=== PATIENT | male | born 1975 | race Caucasian/White ===

== ENCOUNTER → 2017-04-13 | Outpatient (CLI) | payer BC ==
[~2017-04-13] MED LIST: ALBU18002 INH; ATV/1 PO; DEXT1CAP PO; ESCI1TAB10 PO; FLX10 PO; LRT5 PO; METH4PAK4 PO; OXYC-57 PO
--- NOTE | 2017-04-13 12:33 | DIAGNOSTIC IMAGING REPORT ---
CHEST 2 VIEWS ROUTINE CLINICAL HISTORY: SOB dyspnea COMPARISON STUDY: No previous studies for comparison. FINDINGS: The bones soft tissues and hemidiaphragms are normal. The cardiomediastinal silhouette is normal. The lungs are clear. The pulmonary vasculature is normal. IMPRESSION: Negative chest. The above report was generated using voice recognition software. It may contain grammatical, syntax or spelling errors. Electronically signed by: Lucio Reynolds M.D. 04/13/2017 12:32 PM Dictated Date/Time: 04/13/2017 12:32 PM
== END | disposition home or self-care (01) ==
LOC: C.RAD1850 12:01
PROVIDERS: ATTEND Family Medicine
DX: R06.02 Shortness of breath (principal)

== ENCOUNTER 2017-04-17 14:41 | Emergency (ER) | payer BC ==
[~2017-04-17] VITALS: Ht 185.4 cm; Wt 125.0 kg
[~2017-04-17 14:41] MED LIST changes: -ALBU18002 INH; -ATV/1 PO; -DEXT1CAP PO; -ESCI1TAB10 PO
[2017-04-17 14:49] VITALS: TEMP 36.9; Ht 185.4 cm; Wt 125.0 kg
[2017-04-17 15:03] VITALS: O2SAT 100
[2017-04-17 15:06] LABS: BASO % 0.6 %; BASO ABS # 0.04 K/uL (0-0.2); COMPLETE YES; EOS % 1.8 %; HEMATOCRIT 42.1 % (42-52); IG% 0.3 %; LYMPH % 28.2 %; LYMPH ABS # 1.87 K/uL (1.2-3.4); MEAN CORPUSCULAR HEMOGLOBIN 31.2 pg (25-34); MEAN CORPUSCULAR HGB CONC 35.9 g/dl (32-36); MEAN PLATELET VOLUME 10.9 fL (7.4-10.4); MONO % 5.9 %; NEUT % 63.2 %; PLATELET COUNT 221 K/uL (130-400); RED BLOOD COUNT 4.84 M/uL (4.7-6.1); WHITE BLOOD COUNT 6.62 K/uL (4.8-10.8)
--- NOTE | 2017-04-17 15:22 | DIAGNOSTIC IMAGING REPORT ---
CHEST ONE VIEW PORTABLE CLINICAL HISTORY: 41 years-old Male presenting with CHEST PAIN. TECHNIQUE: Portable upright AP view of the chest was obtained. COMPARISON: 04/13/2017. FINDINGS: Cardiomediastinal silhouette normal. Apparent nipple shadow over the right lung base more prominent on the current exam. Lungs and pleural spaces clear. Osseous structures normal. Upper abdomen normal. IMPRESSION: 1. No acute cardiopulmonary disease. Electronically signed by: Mykel Cueva M.D. 04/17/2017 3:21 PM Dictated Date/Time: 04/17/2017 3:20 PM
[2017-04-17 15:23] LABS: BUN/CREATININE RATIO 13.3 (10-20); CALCIUM 9.2 mg/dl (8.5-10.1); CREATININE 1.2 mg/dl (0.60-1.40); POTASSIUM 3.8 mmol/L (3.5-5.1)
[2017-04-17 15:32] LABS: POINT OF CARE TROPONIN I < 0.030 ng/ml (0-0.045)
[2017-04-17] MEDS ORDERED: DEXT1CAP PO (15:45)
[2017-04-17] MEDS ORDERED: ALBU18002 INH (15:45)
[2017-04-17] MEDS ORDERED: ESCI1TAB10 PO (15:45)
[2017-04-17] MEDS ORDERED: LORAZEPAM 1 MG TAB SL STA (17:11)
[2017-04-17 17:13] VITALS: BP 127/77; PULSE 79; O2SAT 99
[2017-04-17] MEDS ORDERED: ATV/1 PO (17:14)
--- NOTE | 2017-04-17 20:49 | EMERGENCY ROOM VISIT NOTE ---
History Report prepared by Jean Marie: Bryson Jarrett Under the Supervision of: Dr. Moise Stewart M.D. First contact with patient: 14:47 Chief Complaint: SHORTNESS OF BREATH Stated Complaint: SHORTNESS OF BREATH History of Present Illness The patient is a 41 year old male who presents to the Emergency Room with complaints of intermittent shortness of breath beginning five days ago. He also complains of intermittent arm tingling. The tingling is not abnormal for him. The patient was seen by his PCP five days ago and had an ECG and blood work which were all normal. He followed up with his PCP this morning. Exertion does not worsen his symptoms. The patient notes that he is in the process of weaning off of Lexapro due to recommendation by his PCP. He states that he has felt anxious recently, but does not know why. Pt denies LOC, headache, fevers, chills , diaphoresis, visual changes, neck pain, chest pain, nausea, vomiting, abdominal pain, back pain, melena, hematochezia, urinary symptoms, numbness, weakness, lymphadenopathy, rash, or other complaints. He has no known personal or family history of blood clots. He denies any recent travel or prolonged immobilization. Source of History: patient Onset: Five days ago Quality: other (shortness of breath) Timing: intermittent Note: Additional symptoms: arm tingling. Review of Systems See HPI for pertinent positives and negatives. A total of ten systems were reviewed and were otherwise negative. Past Medical & Surgical Medical Problems: (1) Numbness Family History No pertinent family history stated. Social History Smoking Status: Never Smoker Occupation Status: employed (Five days ago) Current/Historical Medications Scheduled Dextroamphetamine Sulfate (Dextroamphetamine Sulfate), 30 MG PO DAILY Escitalopram Oxalate (Lexapro), 20 MG PO DAILY Scheduled PRN Albuterol Sulfate (Proair Respiclick), 2 PUFFS INH QID PRN for Wheezing Lorazepam (Ativan), 1 MG PO TID PRN for Anxiety/Agitation Allergies Coded Allergies: No Known Allergies (Unverified , 09/07/12) Physical Exam Vital Signs Date Time Temp Pulse Resp B/P (MAP) Pulse Ox O2 Delivery O2 Flow Rate FiO2 04/17/17 17:13 79 24 127/77 99 Room Air 04/17/17 16:00 57 18 129/78 98 Room Air 04/17/17 15:05 72 04/17/17 15:03 100 Room Air 04/17/17 15:03 100 Room Air 04/17/17 14:49 36.9 72 16 129/72 100 Room Air Physical Exam GENERAL: Awake, alert, well-appearing, in no distress HENT: Normocephalic, atraumatic. Oropharynx unremarkable. EYES: Normal conjunctiva. Sclera non-icteric. NECK: Supple. No nuchal rigidity. FROM. No JVD. RESPIRATORY: Clear to auscultation. CARDIAC: Regular rate, normal rhythm. Extremities warm and well perfused. Pulses equal. ABDOMEN: Soft, non-distended. No tenderness to palpation. No rebound or guarding. No masses. RECTAL: Deferred. MUSCULOSKELETAL: Chest examination reveals no tenderness. The back is symmetrical on inspection without obvious abnormality. There is no CVA tenderness to palpation. No joint edema. LOWER EXTREMITIES: Calves are equal size bilaterally and non-tender. No edema. No discoloration. NEURO: Normal sensorium. No sensory or motor deficits noted. SKIN: No rash or jaundice noted. Medical Decision & Procedures ER Provider Diagnostic Interpretation: X-ray: Per my interpretation, radiologist review. CHEST ONE VIEW PORTABLE FINDINGS: Cardiomediastinal silhouette normal. Apparent nipple shadow over the right lung base more prominent on the current exam. Lungs and pleural spaces clear. Osseous structures normal. Upper abdomen normal. IMPRESSION: 1. No acute cardiopulmonary disease. Electronically signed by: Mykel Cueva M.D. 04/17/2017 3:21 PM Laboratory Results 04/17/17 14:35 Red Blood Count 4.84, Mean Corpuscular Volume 87.0, Mean Corpuscular Hemoglobin 31.2, Mean Corpuscular Hemoglobin Concent 35.9, Mean Platelet Volume 10.9, Neutrophils (%) (Auto) 63.2, Lymphocytes (%) (Auto) 28.2, Monocytes (%) (Auto) 5.9, Eosinophils (%) (Auto) 1.8, Basophils (%) (Auto) 0.6, Neutrophils # (Auto) 4.18, Lymphocytes # (Auto) 1.87, Monocytes # (Auto) 0.39, Eosinophils # (Auto) 0.12, Basophils # (Auto) 0.04 04/17/17 14:35 Test 04/17/17 14:35 04/17/17 15:13 White Blood Count 6.62 K/uL (4.8-10.8) Red Blood Count 4.84 M/uL (4.7-6.1) Hemoglobin 15.1 g/dL (14.0-18.0) Hematocrit 42.1 % (42-52) Mean Corpuscular Volume 87.0 fL (80-100) Mean Corpuscular Hemoglobin 31.2 pg (25-34) Mean Corpuscular Hemoglobin Concent 35.9 g/dl (32-36) Platelet Count 221 K/uL (130-400) Mean Platelet Volume 10.9 fL (7.4-10.4) Neutrophils (%) (Auto) 63.2 % Lymphocytes (%) (Auto) 28.2 % Monocytes (%) (Auto) 5.9 % Eosinophils (%) (Auto) 1.8 % Basophils (%) (Auto) 0.6 % Neutrophils # (Auto) 4.18 K/uL (1.4-6.5) Lymphocytes # (Auto) 1.87 K/uL (1.2-3.4) Monocytes # (Auto) 0.39 K/uL (0.11-0.59) Eosinophils # (Auto) 0.12 K/uL (0-0.5) Basophils # (Auto) 0.04 K/uL (0-0.2) RDW Standard Deviation 45.5 fL (36.4-46.3) RDW Coefficient of Variation 14.2 % (11.5-14.5) Immature Granulocyte % (Auto) 0.3 % Immature Granulocyte # (Auto) 0.02 K/uL (0.00-0.02) Anion Gap 9.0 mmol/L (3-11) Est Creatinine Clear Calc Drug Dose 109.9 ml/min Estimated GFR () 85.3 Estimated GFR (Non- 73.6 BUN/Creatinine Ratio 13.3 (10-20) Calcium Level 9.2 mg/dl (8.5-10.1) Total Bilirubin 0.5 mg/dl (0.2-1) Direct Bilirubin 0.1 mg/dl (0-0.2) Aspartate Amino Transf (AST/SGOT) 23 U/L (15-37) Alanine Aminotransferase (ALT/SGPT) 37 U/L (12-78) Alkaline Phosphatase 60 U/L (45-117) Total Protein 7.2 gm/dl (6.4-8.2) Albumin 3.8 gm/dl (3.4-5.0) Lipase 167 U/L (73-393) Bedside D-Dimer 279 ng/mlFEU (0-450) Bedside Troponin I < 0.030 ng/ml (0-0.045) Laboratory results reviewed by me Medications Administered Medications (Trade) Dose Ordered Sig/Kartik Route Start Time Stop Time Status Last Admin Dose Admin Lorazepam (Ativan Tab) 1 mg NOW STAT SL 04/17/17 17:11 04/17/17 17:12 DC 04/17/17 17:22 1 MG ECG Indication: SOB/dyspnea Rate (beats per minute): 69 Rhythm: normal sinus Findings: no acute ischemic change, no ectopy ED Course 1500: The patient was evaluated in room B12A . A complete history and physical exam was performed. 1711: Ordered Ativan Tab 1 mg SL. 1720: I reevaluated the patient. Discussed results and discharge instructions: he verbalized understanding and agreement. The patient is ready for discharge. Medical Decision Triage Nursing notes reviewed. The patient's presentation and history were concerning for shortness of breath. Etiologies such as anxiety, pneumonia, COPD, reactive airway disease, CHF, cardiac ischemia, pulmonary embolism, pneumothorax, musculoskeletal, infections , gastrointestinal, as well as others were entertained. The patient was evaluated. Clinically is doing well. Vital signs are stable. ECG was performed and was normal. The patient had a chest x-ray was performed and this was negative. His CBC, chemistry panel, LFTs, lipase, d-dimer, and cardiac markers were negative. Given the duration of symptoms a cecal set of markers were performed. He did very well with observation in the emergency department. He has recently been tapering off of his Lexapro. He feels like this may be panic related and that is a possibility. I did offer him a small dose of lorazepam as a trial. He was in agreement. I gave my usual and customary discussion regarding this issue. The patient will follow-up closely with his primary as well as a psychiatrist. If he worsens in any way he'll be back to emergency department for reevaluation. By the evaluation outlined above other emergent etiologies such as those listed in the differential, as well as others, were deemed relatively unlikely. The patient was educated about the findings as listed above. All questions were answered and the patient was pleased with the treatment. Return instructions were outlined and the patient was discharged in stable condition. [place] Drug Monitoring Program Search Results: patient reviewed within database, no issues identified Medication Reconcilliation Current Medication List: was personally reviewed by me Blood Pressure Screening Patient's blood pressure: Normal blood pressure Blood pressure disposition: Did not require urgent referral Impression Primary Impression: SOB (shortness of breath) Additional Impression: Anxiety Scribe Attestation The scribe's documentation has been prepared under my direction and personally reviewed by me in its entirety. I confirm that the note above accurately reflects all work, treatment, procedures, and medical decision making performed by me. Departure Information Dispostion Home / Self-Care Prescriptions Lorazepam (ATIVAN) 1 Mg Tab 1 MG PO TID Y for Anxiety/Agitation, #10 TAB Prov: Moise Stewart MD 04/17/17 Referrals No Doctor, Assigned (PCP) Forms HOME CARE DOCUMENTATION FORM, IMPORTANT VISIT INFORMATION Patient Instructions My [facility] Additional Instructions Ativan 1 mg: Take one 3 times daily only as needed for severe anxiety. Do not drive if taking. May cause drowsiness. Do not take if you are at work or doing any activity where being under the influence may be dangerous. Continue current medications otherwise. Follow-up with your psychiatrist and primary clinic this week. Return to the ER for worsening chest pain, difficulty breathing, fevers, vomiting, worsening of your condition, or as needed. Problem Qualifiers
== END 2017-04-17 17:28 | disposition home or self-care (01) ==
LOC: EDBD 14:41 → C.EDB 14:43
DX: R06.02 Shortness of breath (principal); F41.9 Anxiety disorder, unspecified; Z79.899 Other long term (current) drug therapy